=== PATIENT | male | born 1960 | race Caucasian/White ===

== ENCOUNTER → 2019-04-10 | Outpatient (CLI) | payer BC, OTHER ==
--- NOTE | 2019-04-10 10:24 | EXE ---
[facility] [address] [place] [address] STRESS ECHOCARDIOGRAM Name: GEORGE GALVAN JR Room #: REG [facility]#: [id number] ������������� Admission: 04/10/19 ������������� Attend Phys: Percy Kay, Discharge: ��� ������������� ��� Date of : 56 Date of Service: 04/10/19 1024 �� Report #: [id number] �������� ��������������������������������������������[id number] THIS REPORT FOR: //name// APPROVED REPORT Study performed: 04/10/2019 09:12:57 Exam: Stress Echocardiogram Indication: Chest pain Patient Location: Out-Patient Stress Nurse: Mariah Ly RN Status: routine Ht: 5 ft 8 in HR: 62 bpm BP: 124/78 mmHg Medical History Allergies: Penicillan Cardiac Risk Factors: Hyperlipidemia Procedure The patient underwent an Exercise Stress Test using the Nilay Protocol. Blood pressure, heart rate, and EKG were monitored. An Echocardiogram was performed by vascular ultrasound technician in four stages in quad fashion. At peak stress, four selected images were obtained and placed side by side with resting images for comparison. Stress Test Details Stress Test: Exercise stress testing was performed using a Nilay protocol. HR Resting HR: 62 bpm Max Heart Rate (APMHR): 160 bpm Max HR Achieved: 171 bpm Target HR (85% APMHR): 136 bpm % of APMHR: 106 Recovery HR: 97 bpm HR response to stress: Normal HR response to stress BP Resting BP: 124/78 mmHg Max BP: 172/60 mmHg Recovery BP: 156/70 mmHg BP response to stress: Normal blood pressure response to stress. ECG Resting ECG: Sinus Rhythm [facility] [address] [place] [address] STRESS ECHOCARDIOGRAM Name: COLE,GEORGE Room #: REG [facility]#: [id number] ������������� Admission: 04/10/19 ������������� Attend Phys: Percy Kay, Discharge: ��� ������������� ��� Date of : 56 Date of Service: 04/10/19 [facility] �� Report #: [id number] �������� ��������������������������������������������[id number] Stress ECG: Sinus Tachycardia Recovery ECG: Sinus Rhythm Clinical Reason for Termination: Completed protocol Exercise duration: 10 min sec Highest Stage Achieved: Stage 4: 4.2 mph at 16% grade. Exercise capacity: 13.40 METs Stress ECG Conclusion 1. Subjectively negative for ischemia 2. Elective cardiographic C negative for ischemia 3. Satisfactory functional capacity Pre-Stress Echo The resting Echocardiogram showed normal left ventricular contractility with an estimated Ejection Fraction of about 55-60%. No significant valvular abnormalities. Post-Stress Echo The stress Echocardiogram showed normal left ventricular contractility with an estimated Ejection Fraction of about 65-70%. Normal augmentation of wall motion in all segments on post stress images. Clinical No clinical or ECG evidence for ischemia. Conclusion Clinical Response: Non-ischemic Exercise Capacity: satisfactory Stress ECG Response: Non-ischemic Stress Echo Images: Non-ischemic 1. Low risk study Other Information Study Quality: Adequate <Conclusion> 1. Low risk study ��������������������������������������������� <ELECTRONICALLY SIGNED> ���������������������������������������� By: Eladio Flowers MD ��������������������������������������������� 04/10/19 1024 1024 1024 Eladio Flowers MD /INF
== END ==
LOC: CV 08:44
DX: R07.89 Other chest pain (principal); E78.5 Hyperlipidemia, unspecified; Z88.2 Allergy status to sulfonamides